=== PATIENT | female | born 2000 | race Caucasian/White ===

== ENCOUNTER 2024-06-02 19:28 | Inpatient (IN) | payer MEDICAID, SELFPAY ==
[2024-06-02 19:44] VITALS: BMI 29.7
[2024-06-02 19:50] VITALS: BP 130/76; PULSE 98
[2024-06-02 19:51] VITALS: RESP 16; TEMP 37
[2024-06-02] MEDS: 0.9% Saline Lock 10 ML Syringe IV ×2 (19:55→20:52)
[2024-06-02 19:59] VITALS: PULSE 81; O2SAT 98
[2024-06-02 20:27] LABS: Absolute Lymphocyte Count 1.43 X10^3/uL (0.83-4.51); Absolute Neutrophil Count 6.7 X10^3/uL (2.0-7.7); Basophil# 0.04 X10^3/uL; Basophil% 0.4 % (0-1); Eosinophil# 0.18 X10^3/uL; Hematocrit 31.7 % (37-47); Hemoglobin 10.3 g/dL (12.0-15.0); Lymphocyte # 1.43 X10^3/ul (0.83-4.51); Mean Corp Hgb Conc 32.5 g/dL (32-36); Mean Corpuscular Hgb 26.3 pg (27.0-32.0); Mean Corpuscular Volume 81.1 fL (81-99); Mean Platelet Vol. 10.9 fl (6.2-12.0); Monocyte# 0.55 X10^3/uL; Monocyte% 6.2 % (0-10); NRBC Flagged by Analyzer 0 % (0-5); Neutrophil # 6.71 X10^3/uL (2.7-7.7); Neutrophil % 75.1 % (47-70); Platelet Count 230 K/mm3 (150-450); RBC Distribution Width CV 14.6 % (11.6-14.6); RBC Distribution Width SD 41.8 fl (35.1-43.9); Red Blood Count 3.91 M/mm3 (4.2-5.4); White Blood Count 8.9 K/mm3 (4.4-11.0)
[2024-06-02] MEDS: miSOPROStol 25 MCG TABLET VAGINAL (20:52)
--- NOTE | 2024-06-02 20:56 | PCM.HP.OB ---
HPI - General General Date of Admission: 06/02/24 HPI Narrative re HWANG a 23 F @ 39.2 weeks who presents for elective IOL PFSH PFSH Home Medications ?Medication ?Instructions ?Recorded ?Last Taken ?Type aspirin 81 mg tablet,delayed 81 mg PO DAILY 06/02/24 06/01/24 21:00 History release 81 mg docosahexaenoic acid PO 06/02/24 06/01/24 21:00 History Allergy/AdvReac Type Severity Reaction Status Date / Time Penicillins Allergy Intermediate Hives Verified 06/02/24 19:39 Surgical History (Updated 06/02/24 @ 20:23 by Shirley Valerio) History of surgery Social History Smoking Status: Former smoker History Elective abortions Hx Para 0 Spontaneous abortions Hx # Term Pregnancies Ectopic pregnancies Hx # Pregnancies Multiple births # of living children NST FHR Rate Baby A Baseline: 140 Variability:: Moderate Accelerations:: 15 x 15 Decelerations:: None NST Reactive:: Yes FHR Category:: Category I Uterine Activity:: irregular- not feeling Vital Signs Vital Signs Vital Signs: 06/02/24 19:50 06/02/24 19:50 06/02/24 19:51 Temperature Temperature Source Temporal Pulse Rate 98 Respiratory Rate Blood Pressure 130/76 H BP Systolic 130 BP Diastolic 76 Pulse Ox 06/02/24 19:51 06/02/24 19:51 06/02/24 19:59 Temperature 98.6 F Temperature Source Pulse Rate 81 Respiratory Rate 16 Blood Pressure BP Systolic BP Diastolic Pulse Ox 06/02/24 19:59 Temperature Temperature Source Pulse Rate Respiratory Rate Blood Pressure BP Systolic BP Diastolic Pulse Ox 98 Weight Weight: 83.5 kg Body Mass Index (BMI) 29.7 Physical Exam Narrative /-2 Const alert and oriented x3 General Appearance: cooperative HEENT normocephalic GI GI Narrative: Gravid, non tender to palpation. OB / External & Speculum: external exam normal Extremity normal to inspection Skin no rashes or lesions noted Neuro oriented x3 and CN's II-XII intact bilaterally Psych Appearance: grossly normal Labs Labs Labs: Blood Type Pending Antibody Screen Pending Hct 31.7 % (37-47) L Hgb 10.3 g/dL (12.0-15.0) L Syphilis Total Ab Pending Assessment & Plan (1) 39 weeks gestation of : (2) Encounter for elective induction of labor: PLAN: Plan Admit to L&D [facility] FHR/TOCO Epidural if requested for pain Monitor VS Anticipate Craft - transcervical placed cytotec vaginal placed will start pitocin after craft out GBS negative
[2024-06-02 21:10] LABS: Syphilis Antibodies Non-reactive
[2024-06-03] VITALS (46 sets, daily range): BP systolic 85–135; BP diastolic 51–78; PULSE 66–194; RESP 16–17; TEMP 36.4–37.1; O2SAT 81–100
[2024-06-03] MEDS: miSOPROStol 25 MCG TABLET VAGINAL (00:52)
[2024-06-03] MEDS: Oxytocin 15 Units/NS 250ml 15 UNITS/250 ML IV.SOLN 2 UNITS IV (04:54)
[2024-06-03] MEDS: Lactated Ringers 1,000 ML 50 ML IV (04:54)
[2024-06-03] MEDS: fentaNYL-bupivacaine (epidural) 100 ML BAG EPIDURAL ×2 (06:55→12:10)
[2024-06-03] MEDS: Lactated Ringers 1,000 ML 200 ML IV ×2 (07:00→10:35)
--- NOTE | 2024-06-03 08:35 | PCM.PN.BLA ---
Progress Note LATE ENTRY: pt seen at bedside, resting comfortably with epidural in place AROM performed. light meconium. 4/80/-2. IUPC placed. Continue pitocin.
[2024-06-03] MEDS: Ondansetron 4 MG/2 ML Vial IV (14:56)
--- NOTE | 2024-06-03 15:27 | PN.OBGYN_ITS ---
Subjective Subjective Patient comfortable with epidural. Pushing with contractions. Objective Data Objective Data Vital Signs: Vital Signs Temp Pulse Resp BP Pulse Ox 98.2 F 82 16 118/70 99 06/03/24 14:31 06/03/24 14:31 06/03/24 14:31 06/03/24 14:31 06/03/24 13:16 Weight: 184 lb 1.376 oz Body Mass Index (BMI) 29.7 Intake & Output: Intake and Output for Last 24 Hours 06/01/24 06/02/24 06/03/24 23:59 23:59 23:59 Intake Total 2220.40 / 2220.40 Output Total 500 / 500 Balance 1720.40 / 1720.40 Lab / Micro Data 06/02/24 19:55 Labs: Laboratory Results - last 24 hr 06/02/24 19:55: WBC 8.9, RBC 3.91 L, Hgb 10.3 L, Hct 31.7 L, MCV 81.1, MCH 26.3 L, MCHC 32.5, RDW Std Deviation 41.8, RDW Coeff of [place] 14.6, Plt Count 230, MPV 10.9, Immature Gran % (Auto) 0.300, Neut % (Auto) 75.1 H, Lymph % (Auto) 16.0 L, [place] % (Auto) 6.2, Eos % (Auto) 2.0, Baso % (Auto) 0.4, Absolute Neuts (auto) 6.7, Absolute Lymphs (auto) 1.43, Nucleated RBC % 0, Syphilis Total Ab Non- reactive, Blood Type B POSITIVE, Antibody Screen NEGATIVE Assessment & Plan (1) Encounter for elective induction of labor: (2) 39 weeks gestation of : (3) History of depression: (4) Meconium in amniotic fluid affecting management of mother: PLAN: Plan Patient pushing well with contractions Anticipate
--- NOTE | 2024-06-03 16:17 | OB.VAGDELI_ITS ---
Assessment & Plan (1) (spontaneous vaginal delivery): (2) Shoulder dystocia, delivered, current hospitalization: (3) History of depression: Maternal Data Information BENJAMIN Calculator Estimated Delivery Date Method Current WG Current Estimate 06/07/24 Manual 39w 3d Vaginal Delivery Maternal Presentation Maternal Presentation: Elective Induction Type of Induction: Pitocin, Dalton Bulb, Amniotomy and Cytotec Vaginal Delivery Information Procedure Performed: Spontaneous Vaginal Delivery Surgeon/Practitioner: Shania Xiong Date of Procedure: 06/03/24 Pre-Procedure Diagnosis: Term gestation, Elective induction of labor Post-Procedure Diagnosis: , Live male infant Type of anesthesia: Epidural Estimated Blood Loss: 250 Time of Delivery: 16:00 Findings Description of procedure: Patient progressed to complete dilation. Underwriting Clerk and RT in room for delivery. With good maternal effort, head delivered and turtle sign immediately seen. Patient placed in Kali position. Anterior shoulder palpated. Supra pubic pressure given by RN and shoulder released immediately. 40 seconds from delivery of head to remainder of infant body. Vigorous male placed on maternal abdomen and was attended to by nursing staff and metal alloy scientist. Pitocin IV started for active management of the third stage of labor. 3 vessel cord clamped and cut after delay and placed immediately skin to skin with patient. Placenta delivered spontaneously and intact. After i nspection, vagina and perineum are intact. Vaginal sweep performed. Fundus is firm 2 below U and bleeding is hemostatic. Sponge and sharps counts correct. Patient and infant bonding well at this time. Dr. Bartlett notified of delivery. Routine post orders placed. Presentation: Vertex Amniotic Membrane Rupture Type: Artificial Amniotic Fluid Description: Moderate meconium Placental Delivery Description: Spontaneous Placenta Disposition: [facility] Specimen collected: No Cord Vessel Description: 3 Vessels Cord Entanglement: None Nuchal Cord Compression: Without compression Infant A Gender: Male (1 minute): 8 (5 minute): 9 Delayed Cord Clamping: Yes Log Handler betting clerk: No Post Vaginal Deli Medications given after delivery: IV Pitocin Episiotomy Description: None Laceration: None Complication Complications: No
[2024-06-03] MEDS: Oxytocin 15 Units/NS 250ml 15 UNITS/250 ML IV.SOLN 83 UNITS IV (16:35)
[2024-06-03] MEDS: Naproxen 500 MG Tablet PO (22:48)
[2024-06-04] VITALS (10 sets, daily range): BP systolic 110–123; BP diastolic 59–73; PULSE 78–98; RESP 16; TEMP 36.3–36.9; O2SAT 97–98
[2024-06-04] MEDS: Acetaminophen 500 MG Tablet 1000 MG PO ×2 (00:06→13:17)
[2024-06-04] MEDS: Naproxen 500 MG Tablet PO ×2 (11:16→23:03)
--- NOTE | 2024-06-04 12:24 | PCM.PN.OB ---
Subjective Subjective pain well controlled, average lochia Objective Data Objective Data Vital Signs: Vital Signs Temp Pulse Resp BP Pulse Ox O2 Del Method 98.1 F 98 16 123/71 H 97 Room Air 06/04/24 04:45 06/04/24 12:20 06/04/24 04:45 06/04/24 12:20 06/04/24 04:45 06/04/24 04:45 Oxygen Delivery Method Room Air Weight: 83.5 kg Body Mass Index (BMI) 29.7 Intake & Output: Intake and Output for Last 24 Hours 06/02/24 06/03/24 06/04/24 23:59 23:59 23:59 Intake Total 3700.00 / 3700.00 Output Total 1950 / 1950 200 / 200 Balance 1750.00 / 1750.00 -200 / -200 Lab / Micro Data 06/02/24 19:55 Physical Exam Const alert and no apparent distress Narrative: Fundus firm, below umbilicus. Assessment & Plan (1) (spontaneous vaginal delivery): PLAN: PPD#1 doing well and doing well desires d/c home in am if she and are doing well
--- NOTE | 2024-06-04 14:09 | CASEMGMT ---
Social Work Assessment Labor and Delivery Unit Patient Address: [address] [place] [address] [address] [place] [address] Phone number: [phone] Date of Referral: 06/03/24 Time of Referral:? 1858 Referred By: Shania Xiong Date of Intervention: ?06/04/24? Time of Intervention:? 1320 Reason for Referral:? history of anxiety and depression Sw completed chart review and acknowledges social work consult due to maternal mental health history. Sw presented to bedside and introduced self to mother of baby (VICKI- Bonnie). Sw explained reason for sw involvement and completed psychosocial assessment. History obtained from: medical records and mother of baby (VICKI)??? Household composition: MOB states that she currently resides with her father, along with father of baby (FOB- Shahzad Barroso). MOB states that when baby is ready for discharge he will be included in residence. Patient's parent/guardian status:? MOB states that she and FOB met online and have been together for one year. This is first baby for both parents. No concerns reported of domestic violence or intimate partner violence. ? Medical History: ?VICKI is 23 year old female who is 1, para 0- now 1 following labor and delivery of . MOB received routine care during with [facility] during . VICKI presented to hospital for scheduled induction of labor and delivered baby via vaginal delivery at 39 weeks gestation. Baby boy, named Dung Angelo, was born on 06/[birth year]/24 weighing 9lb 3oz with apgars of 8 and 9 at one and five minutes of life, respectfully. MOB states that she is breast feeding and baby will be followed by Dr. Colon for pediatrics. Educational Status:? MOB states that both parents graduated from high school. MOB denies problems with reading, learning or comprehension. Financial Status: MOB states that she is gainfully employed outside of the home and FOB does not work at this time. MOB states that she works for [employer] and is able to take off 6 weeks of work. Supplies: MOB states that they have obtained all necessary baby supplies, including: car seat, safe sleep space, clothes, diapers and wipes. Childcare/Caregiver(s):? MOB states that she will be the primary caregiver to baby along with FOB and her dad who they currently reside with. Transportation:?? Both parents have their drivers license and reliable means of transportation. No barriers. Programs/Agencies Involved: VICKI states that she is connected to [facility] through S and WIC. Children Services/Legal Issues:??? No history with children services and no legal involvement or concerns at this time. NO reason for referral to be made to Children Services. Behavioral Health Issues: ??Mental Health History:??No mental health diagnoses/ history for FOB. MOB reports that she has been diagnosed with anxiety and depression. MOB reports that she felt anxious and down earlier on in . MOB states that due to this she got and stayed connected to [facility]. MOB reports that she has mental health supports and services through [facility] that she will be in contact with during this period. ? Substance Use History:?MOB denies substance use prior to and during . ? Family History:???No family history of substance use/ addiction or significant mental health diagnoses. ?? Drug Screens: No drug screens observed during chart review. Family/Social Stressors:?MOB denies any issues, concerns or stressors at this time. Support Systems: MOB states that FOB, her dad and some of her friends are her biggest supports. Depression/Shaken Baby/Safe Sleeping: Miguel educated MOB on signs and symptoms of baby blues and depression and anxiety. MOB explained to MOB that she is more at risk for experiencing these symptoms due to her mental health history. MOB states that she is aware of symptoms to be mindful of and will discuss any concerns with her counselor. MOB states that she is extremely happy, and thankful baby is here. MOB denies any concerns of anxiousness, sadness, depression, feeling down or helpless.MOB states that FOB will also be able to recognize if she is struggling and would know how to help and support her. Miguel educated MOB on shaken baby prevention and ABCs of safe sleep. MOB expresses understanding. ASSESSMENT:? MOB and baby admitted following labor and delivery of . MOB with mental health history positive for anxiety and depression. MOB connected to mental health services and supports during and after labor and delivery. MOB has supports found in FOB and other family that she resides with. MOB talkative and observed to hold baby and provide loving and appropriate hands on care. MOB states she and FOB have not been together that long, but she still identifies him as her biggest support person and she is eager to see him transition into fatherhood. MOB has all necessary baby supplies. MOB was talkative and engaging throughout assessment. MOB receptive to sw involvement and support. PLAN:?? No other services requested or indicated. MOB and baby to be discharged when medically ready. Parents were provided literature regarding: signs and symptoms of baby blues and mood and anxiety disorders, Help Me Grow, shaken baby prevention, ABCs of safe sleep and a list of [facility] resources that are available for them should any needs present themselves. Jennyfer Bernal, HEALTH PHYSICS TECHNICIAN, GLOBAL COMMODITY MANAGER
[2024-06-05 03:03] VITALS: BP 119/79; PULSE 78; RESP 15; TEMP 36.1; O2SAT 98
[2024-06-05 03:05] VITALS: BP 119/79; PULSE 83
--- NOTE | 2024-06-05 06:51 | PCM.PN.OB ---
Subjective Subjective Pain well-controlled. Average lochia. Objective Data Objective Data Vital Signs: Vital Signs Temp Pulse Resp BP Pulse Ox O2 Del Method 97.0 F L 83 15 119/79 98 Room Air 06/05/24 03:03 06/05/24 03:05 06/05/24 03:03 06/05/24 03:05 06/05/24 03:03 06/05/24 03:03 Oxygen Delivery Method Room Air Weight: 83.5 kg Body Mass Index (BMI) 29.7 Intake & Output: Intake and Output for Last 24 Hours 06/03/24 06/04/24 06/05/24 23:59 23:59 23:59 Intake Total 3700.00 / 3700.00 Output Total 1950 / 1950 200 / 200 Balance 1750.00 / 1750.00 -200 / -200 Lab / Micro Data 06/02/24 19:55 Physical Exam Const alert and no apparent distress Narrative: Fundus firm, below umbilicus. Assessment & Plan (1) (spontaneous vaginal delivery): PLAN: day #2 status post vaginal delivery. the patient is doing well. Working on breast-feeding. Declines prescriptions for discharge. Follow-up in 1 in 6 weeks or as needed.
--- NOTE | 2024-06-05 06:53 | PCM.DC.SUM ---
Providers Date of Admission: 06/02/24 Primary Care Physician: Dr. Damir Landa MD Reason For Visit: VAGINAL Diagnosis Discharge Diagnosis (1) (spontaneous vaginal delivery): Status: Acute Code(s): O80 - Encounter for full-term uncomplicated delivery Plan: day #2 status post vaginal delivery. the patient is doing well. Working on breast-feeding. Declines prescriptions for discharge. Follow-up in 1 in 6 weeks or as needed. Medications at Discharge Home Medications docosahexaenoic acid 1 cap PO DAILY 06/02/24 Hospital Course Operations None Procedures - (Vaginal delivery) Summary of Care Provided Minutes Spent on Discharge: 22 Hospital Course: 23-year-old 1 para 0 who was admitted at 39+ gestational weeks for elective induction of labor on 06/02/2024. She had a Dalton catheter placed and Pitocin. She had a spontaneous vaginal delivery on 06/03/2024. By day #2 she was ambulating, urinating tolerating regular diet without difficulty and the was breast-feeding and doing well. She desired discharge home with routine instructions and follow-up. She declined prescriptions for discharge home. Weight / BMI Weight Weight: 83.5 kg Body Mass Index (BMI) 29.7 ABG / Lab / Microbiology Data 06/02/24 19:55 D/C Instructions May resume sexual activity in: 6 weeks DC O2, CPAP, BIPAP Needs Home O2 Discharge instructions: No Please Follow Up With: Shania Xiong CNM When: Follow up with our office in 1 and 6 weeks or as needed. [phone] Meaningful Use Info Meaningful Use Meaningful Use Diagnoses (Choose all that apply): None applicable Ischemic Stroke Statin Dosing Therapy Reference: STATIN DOSE THERAPY REFERENCE: * Patients > 75 years receive moderate or high dose statin therapy. * Patients 75 years or YOUNGER should receive HIGH intensity statin dose unless contraindicated. You will be required to document reason for non-treatment if statin daily dose does not meet guidelines. HIGH DOSE STATIN THERAPY DAILY Atorvastatin > than or = to 40 mg Rosuvastatin > than or = to 20 mg Amlodipine + Atorvastatin > than or = to 2.5/40 mg Ezetimibe + Simvastatin 10/80 mg Simvastatin 80mg Discharge Plan Admission Admit Date/Time: 06/02/24 19:28 Primary Reason for Your Visit: Labor and vaginal delivery Attending Provider: Shania Xiong Primary Care Provider: Damir Landa Discharge Orders/Prescriptions Prescriptions: Continued docosahexaenoic acid [ DHA] 1 cap PO DAILY Discontinued aspirin 81 mg tablet,delayed release (DR/EC) 81 mg PO DAILY Referrals / Follow Up: Damir Landa MD [Primary Care Provider] - Disposition Disposition (needs filled in before D/C Order can be placed): Home, Self Care
[2024-06-05 08:19] VITALS: BP 122/72; PULSE 83; PULSE 86; RESP 16; TEMP 36.5; O2SAT 99
[2024-06-05] MEDS: Senna/Docusate Sodium 1 Tablet PO (08:25)
--- NOTE | 2024-06-11 14:22 | NURSING ---
Follow up phone call: Patient is doing so well, other than being tired. No s+s of pp complications and her vaginal bleeding has decreased significantly. Infant is feeding so well and is almost back to weight. Patient has no questions or concerns and loved her experience during her stay.
== END 2024-06-05 12:05 | disposition home or self-care (01) | DRG 560 ==
PROVIDERS: Obstetrics & Gynecology; Admitting Provider Advanced Practice Midwife; PCP Family Medicine; Referring Provider Advanced Practice Midwife; Visit Provider Advanced Practice Midwife
DX: O77.0 Labor and delivery complicated by meconium in amniotic fluid (principal); Z37.0 Single live birth; O66.0 Obstructed labor due to shoulder dystocia; Z3A.39 39 weeks gestation of pregnancy; Z88.0 Allergy status to penicillin; Z79.82 Long term (current) use of aspirin; Z86.59 Personal history of other mental and behavioral disorders; Z87.891 Personal history of nicotine dependence
CPT/HCPCS: 59025; 59050; 85025; 86780; 86850; 86900; 86901; A4216; J2405

== ENCOUNTER 2025-02-08 03:21 | Emergency (ER) | payer BC, MEDICAID, SELFPAY ==
[2025-02-08 03:22] VITALS: BP 118/83; PULSE 99; RESP 22; TEMP 36.2; O2SAT 100; BMI 23.5
[2025-02-08] MEDS: 0.9% Normal Saline (1000mL) 1,000 ML 999 ML IV (03:50)
[2025-02-08 03:58] LABS: Internal QC Validated? YES +Cl - CLEAR BKGD; Pregnancy, Serum, hCG Quali. NEGATIVE Negative; Record Kit Lot#, Serum Preg. 0000980607
[2025-02-08 04:17] LABS: Lipase 27 U/L (13-75)
[2025-02-08 04:25] LABS: AST(SGOT) 28 U/L (<=31); Alanine Aminotransfer ALT/SGPT 17 U/L (<=34); Albumin, Serum 4.2 g/dL (3.5-5.0); Alkaline Phosphatase 68 U/L (35-104); Anion Gap 15 (5-15); BUN 10 mg/dL (4-19); BUN/Creat Ratio 13.9 RATIO (10-20); Calcium,Total 8.8 mg/dL (7.6-11.0); Carbon Dioxide 19.6 mmol/L (21.0-32.0); Chloride 105 mmol/L (98-108); Estimated Creatinine Clearance 113.16 ml/min (50-250); Globulin 3.1 g/dL (2.2-4.2); Glucose 162 mg/dL (70-99); Potassium 3.6 mmol/L (3.3-5.1)
[2025-02-08 04:28] LABS: Hematocrit 36.5 % (37-47); Hemoglobin 12.2 g/dL (12.0-15.0); Immature Granulocytes Count 0.020 X10^3/uL (0.0-0.0); Mean Corp Hgb Conc 33.4 g/dL (32-36); Mean Corpuscular Volume 82.8 fL (81-99); Mean Platelet Vol. 9.3 fl (6.2-12.0); NRBC Flagged by Analyzer 0 % (0-5); Platelet Count 205 K/mm3 (150-450); RBC Distribution Width CV 14.2 % (11.6-14.6); RBC Distribution Width SD 42.9 fl (35.1-43.9); Red Blood Count 4.41 M/mm3 (4.2-5.4); White Blood Count 7.8 K/mm3 (4.4-11.0)
--- NOTE | 2025-02-08 04:51 | EX.ED.DYSGE1 ---
HPI History of Present Illness Chief Complaint: Nausea/Vomiting Informant: patient Narrative Narrative: Patient is a 24-year-old female who reports no significant past medical history. She states her father was recently sick with bouts of nausea vomiting diarrhea. She states he got over his symptoms a few days ago but last night and this morning she woke with generalized abdominal discomfort and bouts of nausea vomiting and diarrhea. She denies any blood or discoloration to the emesis or stool. She states has been no recent antibiotic use or travel outside the country. She states that she does not have any medication to help prevent her symptoms and with concern for dehydration from the recurrent episodes comes in for evaluation [facility] Medical History (Updated 02/08/25 @ 04:[address] Rei Rojas, DO) Shoulder dystocia, delivered, current hospitalization History of depression Medical History no medical history Home Medications ?Medication ?Instructions ?Recorded ?Last Taken ?Type docosahexaenoic acid 1 cap PO DAILY 06/02/24 06/01/24 21:00 History dicyclomine 20 mg tablet 20 mg PO 4X/DAY PRN Abdominal 02/08/25 Unknown Rx bloating/spasm #28 tabs ondansetron 4 mg disintegrating 4 mg PO TID PRN nausea and 02/08/25 Unknown Rx tablet vomiting #21 tabs Allergy/AdvReac Type Severity Reaction Status Date / Time Penicillins Allergy Intermediate Hives Verified 02/08/25 03:22 Surgical History (Updated 06/02/24 @ 20:23 by Shirley Valerio) History of surgery Social History Smoking Status: Former smoker ROS ROS ED Constitutional Constitutional ED: Denies chills or fever(s) ENT ENT ED: Denies sore throat Cardiovascular Cardiovascular: Denies chest pain Respiratory/Chest Respiratory/Chest: Denies cough or dyspnea Gastrointestinal Gastrointestinal: Reports abdominal pain, diarrhea, nausea and vomiting Genitourinary Genitourinary ED: Denies dysuria or hematuria Musculoskeletal Musculoskeletal: Reports myalgias; Denies back pain Integumentary Denies rash Neurologic Neurologic: Denies headache(s) Hematologic/Lymphatic Hematologic/Lymphatic: Denies easy bleeding or easy bruising EXAM Physical Exam Const Vital Signs: 02/08/25 03:22 02/08/25 05:03 Temperature 97.1 F L 97.1 F L Temperature Source Temporal Pulse Rate 99 99 Respiratory Rate 22 H 22 H Blood Pressure 118/83 H 118/83 H Blood Pressure Mean 94 94 Pulse Ox 100 100 Positive well nourished and well developed General Appearance ED: well developed; Negative for pallor HEENT HEENT Narrative: Normocephalic atraumatic No tongue or lip swelling no oral lesions no airway edema or compromise; no secondary findings in the posterior pharynx to suggest infection Mucous membranes are mildly dry and tacky Eyes PERRL and EOMs intact bilaterally General Eye ED: Negative for scleral icterus Neck supple Neck Narrative: No nuchal rigidity or meningeal signs Resp normal respiratory effort and clear to auscultation bilaterally Cardio regular rate and regular rhythm GI non-distended and no masses GI Narrative: Abdomen is soft and nondistended with hyperactive bowel sounds. There is mild diffuse pain on palpation without voluntary guarding or rigidity or pulsatile mass Auscultation: hyperactive bowel sounds Palpation: soft Back/Spine no CVA tenderness Extremity normal to inspection Neuro oriented x3, CN's II-XII intact bilaterally and no sensory deficits noted Sensorium / Orientation: alert Motor Exam: strength 5/5 throughout Psych mental status grossly normal Skin no rashes or lesions noted and skin turgor normal General Skin Exam: Negative for jaundice or pallor MDM MDM MDM Narrative Medical decision making narrative: Patient arrived to the ER with stable vitals and a soft nonsurgical abdomen. She reported nausea vomiting and diarrhea with recent sick contacts at home with similar symptoms. History and exam is most consistent with viral stomach infection such as norovirus or rotavirus. In order to check for signs of acute kidney injury versus electrolyte abnormality biliary colic or pancreatitis basic blood work was ordered. There is also potential for complication. test is negative going against complication and the remainder of her labs revealed no clinically significant findings either. After receiving IV hydration and Zofran patient had no further bouts of vomiting and reported feeling better. On reevaluation her abdomen remains soft and nonsurgical. Therefore do not feel the need for further intervention and she is otherwise safe for discharge with symptomatic medication History & Record Review Discussion w/independent historian: Patient Lab Data Attestation: I reviewed the patient's lab results. Labs: Laboratory Results - last 24 hr 02/08/25 02/08/25 02/08/25 03:30 03:30 04:23 WBC Cancelled 7.8 Corrected WBC Cancelled RBC Cancelled 4.41 Hgb Cancelled 12.2 Hct Cancelled 36.5 L MCV Cancelled 82.8 MCH Cancelled 27.7 MCHC Cancelled 33.4 RDW Std Deviation Cancelled 42.9 RDW Coeff of [place] Cancelled 14.2 Plt Count Cancelled 205 MPV Cancelled 9.3 Immature Gran % (Auto) Cancelled 0.300 Neut % (Auto) Cancelled 85.7 H Lymph % (Auto) Cancelled 9.4 L [place] % (Auto) Cancelled 3.4 Eos % (Auto) Cancelled 0.9 Baso % (Auto) Cancelled 0.3 Absolute Neuts (auto) Cancelled 6.7 Absolute Lymphs (auto) Cancelled 0.74 L Total Counted Cancelled Neutrophils % (Manual) Cancelled Band Neutrophils % Cancelled Lymphocytes % (Manual) Cancelled Monocytes % (Manual) Cancelled Eosinophils % (Manual) Cancelled Basophils % (Manual) Cancelled Metamyelocytes % Cancelled Myelocytes % Cancelled Promyelocytes % Cancelled Blast Cells % Cancelled Plasma Cell % (Manual) Cancelled Other Cells % Cancelled Nucleated RBC % Cancelled 0 Nucleated RBCs/100 WBC Cancelled Differential Comment Cancelled Diff Path Review Cancelled Hypersegmented Neuts Cancelled Atypical Lymphocytes Cancelled Reactive Lymphocytes Cancelled Smudge Cells Cancelled Toxic Granulation Cancelled Toxic Vacuolation Cancelled Dohle Bodies Cancelled Nahomy Rods Cancelled Platelet Estimate Cancelled Plt Morphology Comment Cancelled RBC Morphology Cancelled Cancelled Polychromasia Cancelled Hypochromasia Cancelled Basophilic Stippling Cancelled Anisocytosis Cancelled Microcytosis Cancelled Macrocytosis Cancelled Spherocytes Cancelled Sickle Cells Cancelled Target Cells Cancelled Tear Drop Cells Cancelled Ovalocytes Cancelled Stomatocytes Cancelled [place] Bodies Cancelled [place] Cells Cancelled Bite Cells Cancelled Crenated Cell Cancelled Acanthocytes (Spur) Cancelled Rouleaux Cancelled Schistocytes Cancelled Sodium 140 Potassium 3.6 Chloride 105 Carbon Dioxide 19.6 L Anion Gap 15 BUN 10 Creatinine 0.73 Estim Creat Clear Calc 113.16 Est GFR (MDRD) Non-Af 119 BUN/Creatinine Ratio 13.9 Glucose 162 H Calcium 8.8 Total Bilirubin 0.23 AST 28 ALT 17 Alkaline Phosphatase 68 Total Protein 7.3 Albumin 4.2 Globulin 3.1 Albumin/Globulin Ratio 1.4 Lipase 27 Serum , Qual NEGATIVE Discharge Plan Triage Chief Complaint: Nausea/Vomiting ED Provider: eRi Rojas Dx/Rx/DC Orders Clinical Impression: Nausea vomiting and diarrhea, Mild dehydration Instructions: ED Dehydration (Adult), ED Gastroenteritis, Viral (Adult) Prescriptions: New ondansetron 4 mg tablet,disintegrating 4 mg PO TID PRN (Reason: nausea and vomiting) Qty: 21 0RF dicyclomine 20 mg tablet 20 mg PO 4X/DAY PRN (Reason: Abdominal bloating/spasm) Qty: 28 0RF No Action docosahexaenoic acid [ DHA] 1 cap PO DAILY Stand Alone Forms: ED Work / School Excuse Primary Care Provider: Damir Landa Referrals: Damir Landa MD [Primary Care Provider, Family Practice] Activity Restrictions/Additional Instructions: Your history and exam is consistent with a viral stomach infection. This will resolve spontaneously. He will typically take anywhere from 24 hours to 7 days with the average being 3 days. Use the prescribed medication to help control symptoms and keep yourself well-hydrated. Return to the ER should you have any further concerns Print Language: [place] Disposition Disposition: Home, Self Care Discharge Date/Time: 02/08/25 05:04
[2025-02-08 05:03] VITALS: BP 118/83; PULSE 99; RESP 22; TEMP 36.2; O2SAT 100
== END 2025-02-08 05:04 | disposition home or self-care (01) ==
PROVIDERS: Emergency Provider Emergency Medicine; PCP Family Medicine; Visit Provider Emergency Medicine
DX: R11.2 Nausea with vomiting, unspecified (principal); R19.7 Diarrhea, unspecified; R10.9 Unspecified abdominal pain; E86.0 Dehydration; Z87.891 Personal history of nicotine dependence
CPT/HCPCS: 80053; 83690; 84703; 85025; 96374; 96376; 99283; A4216; J2405